=== PATIENT | male | born 1960 | race Caucasian/White ===

== ENCOUNTER → 2023-12-03 11:08 | Outpatient (REF) | payer OTHER, SELFPAY ==
[2023-12-03 13:24] LABS: Glycohemoglobin (HgbA1c) 8.8 % (4.0-5.6)
[2023-12-03 13:38] LABS: D-Dimer 0.47 ug/mlFEU (0.00-0.50)
[2023-12-03 13:55] LABS: Microalbumin, Random Urine 3.1 mg/dl (0.6-1.7); Microalbumin/creatinine Ratio 12.8 mg/g
[2023-12-03 14:03] LABS: ALT (SGPT) 22 U/L (0-50); AST (SGOT) 25 U/L (17-59); Albumin 4.5 g/dl (3.5-5.0); Alkaline Phosphatase 112 U/L (38-126); Blood Urea Nitrogen 13 mg/dl (9-20); Calcium 9.4 mg/dl (8.4-10.2); Carbon Dioxide 24 mmol/L (22-30); Chloride 105 mmol/L (98-107); Glucose 147 mg/dl (70-99); HDL Cholesterol 38 mg/dl; LDL Cholesterol, Calculated 83 mg/dl; Potassium 3.9 mmol/L (3.5-5.1); Sodium 138 mmol/L (135-145); Total Bilirubin 0.6 mg/dl (0.2-1.3); Total Cholesterol 142 mg/dl (50-199); Total Protein 7.7 g/dl (6.3-8.2); Triglyceride 109 mg/dl (10-149); Very Low Density Lipoprotein 21 mg/dl (0-30); eGFR > 60.00
[2023-12-06 05:49] LABS: PSA Total 5.7 ng/mL (0.0-4.0)
== END ==
LOC: RAD 11:08
PROVIDERS: ATTENDING PHYSICIAN Nurse Practitioner Adult Health
DX: R79.89 Other specified abnormal findings of blood chemistry (principal); R60.0 Localized edema; R97.20 Elevated prostate specific antigen [PSA]; E11.65 Type 2 diabetes mellitus with hyperglycemia; E78.00 Pure hypercholesterolemia, unspecified
CPT/HCPCS: 36415; 80053; 80061; 82043; 82570; 83036; 84153; 84154; 85379; 93970